=== PATIENT | male | born 1945 | race Caucasian/White ===

== ENCOUNTER 2020-07-27 09:47 | Outpatient (REF) | payer MEDICARE, SELFPAY ==
[2020-07-27 10:48] LABS: MANUAL DIFF FLAG NO
[2020-07-27 10:52] LABS: Basophils Absolute Auto 0.1 X10*3/uL (0.0-0.2); Eosinophils Absolute Auto 1.1 X10*3/uL (0.0-0.4); Eosinophils Percent Auto 14.2 % (0-4); Hematocrit 43.1 % (42-52); Hemoglobin 14.3 g/dl (14.0-18.0); Imm Gran Abs Auto 0.01 X10*3/uL (0.00-0.03); Imm Gran Pct Auto 0.1 % (0.0-0.4); Lymphocytes Percent Auto 24.4 % (20-40); Mean Corpuscular HGB Conc 33.2 g/dl (31.0-36.0); Mean Corpuscular Hemoglobin 29.2 pg (27.0-33.0); Mean Corpuscular Volume 88.1 fL (80-98); Mean Platelet Volume 9.8 fL (9.4-12.4); Monocytes Absolute Auto 0.7 X10*3/uL (0.1-1.2); Monocytes Percent Auto 8.1 % (2-11); Neutrophils Absolute Auto 4.2 X10*3/uL (2.0-8.3); Neutrophils Percent Auto 52.2 % (45-73); Platelet Count 238 X10*3/uL (160-400); Red Blood Count 4.89 X10*6/uL (4.60-5.80)
[2020-07-27 11:18] LABS: Alanine Aminotransferase 17 U/L (0-40); Albumin Level 4.1 g/dL (3.5-5.0); Alkaline Phosphatase 109 U/L (39-117); Anion Gap 14 (12-20); Aspartate Amino Transferase 15 U/L (5-37); Bilirubin Total 0.3 mg/dL (0.0-1.0); Blood Urea Nitrogen 20 mg/dL (9-16); Calcium 9.4 mg/dL (8.4-10.2); Carbon Dioxide 25 mmol/L (22-29); Chloride 108 mmol/L (96-108); Cholesterol 224 mg/dL; Estimated Glomerular Filt Rate > 60; Glucose Fasting 96 mg/dL (60-99); HDL Cholesterol 54 mg/dL; LDL Cholesterol Calculated 148 mg/dl; Sodium 143 mmol/L (135-145); Total Protein 7.9 g/dL (6.5-8.0); Triglycerides 114 mg/dL
[2020-07-27 11:42] LABS: T4 Thyroxine 5.6 ug/dL (4.5-12.0); Thyroid Stimulating Hormone 1.44 mIU/mL (0.32-4.0)
[2020-07-27 12:04] LABS: Folate 14.3 ng/mL (> or = 4.0); Vitamin B12 526 pg/mL (200-900)
[2020-07-27 13:31] LABS: Phenytoin Dilantin 6.6 ug/mL (10.0-20.0)
== END 2020-07-27 09:48 | disposition home or self-care (01) ==
LOC: HO.LAB 09:47
PROVIDERS: PCP Internal Medicine; Visit Provider Internal Medicine
DX: E66.9 Obesity, unspecified (principal); I10 Essential (primary) hypertension; G40.909 Epilepsy, unspecified, not intractable, without status epilepticus
CPT/HCPCS: 36415; 80053; 80061; 80185; 82607; 82746; 84436; 84443; 85025

== ENCOUNTER 2020-08-03 10:42 | Outpatient (REF) | payer MEDICARE, SELFPAY ==
[2020-08-03 13:29] LABS: MANUAL DIFF FLAG NO
[2020-08-03 13:39] LABS: Basophils Absolute Auto 0.1 X10*3/uL (0.0-0.2); Basophils Percent Auto 1.1 % (0-2); Eosinophils Percent Auto 11.8 % (0-4); Hemoglobin 14.3 g/dl (14.0-18.0); Imm Gran Abs Auto 0.02 X10*3/uL (0.00-0.03); Imm Gran Pct Auto 0.2 % (0.0-0.4); Lymphocytes Absolute Auto 2.2 X10*3/uL (1.2-4.9); Lymphocytes Percent Auto 26.8 % (20-40); Mean Corpuscular HGB Conc 33.3 g/dl (31.0-36.0); Mean Corpuscular Hemoglobin 29.2 pg (27.0-33.0); Mean Corpuscular Volume 87.8 fL (80-98); Mean Platelet Volume 10.7 fL (9.4-12.4); Monocytes Absolute Auto 0.7 X10*3/uL (0.1-1.2); Neutrophils Absolute Auto 4.4 X10*3/uL (2.0-8.3); Neutrophils Percent Auto 52.1 % (45-73); Platelet Count 238 X10*3/uL (160-400); Red Cell Distribution Width 14.2 % (11.0-16.0); White Blood Count 8.4 X10*3/uL (4.8-10.8)
[2020-08-03 13:51] LABS: Alanine Aminotransferase 20 U/L (0-40); Albumin Level 4.1 g/dL (3.5-5.0); Alkaline Phosphatase 109 U/L (39-117); Anion Gap 12 (12-20); Aspartate Amino Transferase 17 U/L (5-37); Bilirubin Total 0.3 mg/dL (0.0-1.0); Blood Urea Nitrogen 12 mg/dL (9-16); Calcium 9.1 mg/dL (8.4-10.2); Carbon Dioxide 27 mmol/L (22-29); Chloride 103 mmol/L (96-108); Cholesterol 218 mg/dL; Estimated Glomerular Filt Rate > 60; Glucose Random 88 mg/dL (60-115); HDL Cholesterol 53 mg/dL; LDL Cholesterol Calculated 143 mg/dl; Potassium 4.2 mmol/l (3.3-5.1); Sodium 138 mmol/L (135-145); Total Protein 7.9 g/dL (6.5-8.0); Triglycerides 111 mg/dL
[2020-08-03 14:14] LABS: T4 Thyroxine 5.9 ug/dL (4.5-12.0); Thyroid Stimulating Hormone 1.41 mIU/mL (0.32-4.0)
[2020-08-03 15:16] LABS: Phenytoin Dilantin 14.1 ug/mL (10.0-20.0)
[2020-08-04 21:00] LABS: Folate 14.8 ng/mL (> or = 4.0); Vitamin B12 581 pg/mL (200-900)
== END 2020-08-03 10:43 | disposition home or self-care (01) ==
LOC: HO.LAB 10:42
PROVIDERS: PCP Internal Medicine; Visit Provider Internal Medicine
DX: E66.9 Obesity, unspecified (principal); I10 Essential (primary) hypertension; G40.909 Epilepsy, unspecified, not intractable, without status epilepticus
CPT/HCPCS: 36415; 80053; 80061; 80185; 82607; 82746; 84436; 84443; 85025

== ENCOUNTER → 2023-05-15 13:08 | Outpatient (BNVA) | payer MEDICARE, SELFPAY | PROVIDERS: PCP Internal Medicine; Visit Provider Physician Assistant | DX: D12.6 Benign neoplasm of colon, unspecified (principal); G40.909 Epilepsy, unspecified, not intractable, without status epilepticus | CPT/HCPCS: 99202 ==

== ENCOUNTER → 2023-05-15 13:08 | Outpatient (AMB) | payer MEDICARE, SELFPAY ==
--- NOTE | 2023-05-15 13:16 | MHC.OFFVIS ---
Intake Vital Signs 05/15/23 13:18 Height 5 ft 6 in Weight 198 lb 6.656 oz BMI 32.0 BP 136/84 Blood Pressure Location Lt brachial Position Sitting Pulse 85 Intake Visit Reasons: colonoscopy screening Intake Note: Anoop presents in the office as a new patient for a colonoscopy screening. CC: No concerns today Le[employer] Senior Specialist Required: Yes [employer] Senior Specialist Name: Grandson Allergies Penicillins [PENICILLINS] Allergy (Unknown, Verified 05/15/23 13:18) RASH Medication List - Last Reconciled 05/15/23 by Pamela Henrandez PA-C aspirin 81 mg PO DAILY 90 days metoprolol succinate ER 50 mg PO DAILY 90 days pnvpodkr-qvv-DX-lycopen-lutein 0.4 mg-300 mcg- 250 mcg ([employer] Senior) 0 tabs PO phenytoin sodium extended 200 mg (2 x 100 mg) PO DAILY 90 days HPI HPI Comments History of Present Illness Details A 78 y/o male referred for colonoscopy- adult grand son present- interprets some- adds to hx- Lives alone - Reviewed record- noting 2015- TA and diverticulosis SZ disorder- now well controlled. Appetite good-- no reflux- No N/V/ D/ abdominal pain- fever or chills PFSH Medical History Alcohol abuse Bladder incontinence BPH (benign prostatic hyperplasia) Chronic cystitis Dementia GERD (gastroesophageal reflux disease) Hypercholesterolemia Hypertension Obesity (BMI 30-39.9) Renal stones Seizure disorder Subarachnoid hemorrhage following injury Surgical History History of cystoscopy History of surgery Hx of colonoscopy Family History Father Medical history unknown Mother Medical history unknown Social History Housing: Apartment Patient Tobacco Use Status: Former Tobacco user Tobacco use type: Cigarette e-Cigarette/Vaping Use: Never Used Second Hand Smoke Exposure: No Current occupational status: retired Cognitive needs: No Hearing needs: No Vision needs: Yes Review of Systems Const All systems reviewed & are unremarkable except as noted in HPI and below Card Denies chest pain and Denies dyspnea Resp Denies dyspnea GI Denies hematochezia, Denies change in bowel habits, Denies constipation, Denies heartburn, Denies nausea and Denies vomiting Physical Exam Vital Signs: Last Vital Signs Pulse 85 05/15/23 13:18 BP 136/84 05/15/23 13:18 BMI result Body Mass Index 32.0 Const General: cooperative, comfortable and no acute distress Orientation/consciousness: patient oriented x3 Limitations: language barrier Eyes Sclerae: sclerae normal Resp Effort & Inspection: normal respiratory effort and able to speak in complete sentences Auscultation: clear to auscultation bilaterally, no rhonchi and no wheezes Cardio Rate: regular rate Rhythm: regular rhythm Heart sounds: S1 normal heart sound present and S2 normal heart sound present GI Palpation (GI): Soft to palpation and nontender Auscultation: normal bowel sounds Skin General skin exam: no rashes or lesions noted Neuro General: patient oriented x3 Extrem General: Yes full ROM Psych Appearance: grossly normal and well kempt Mental Status: mental status grossly normal Speech and movement: Normal speech and movement present Affect: normal affect Attitude: cooperative Thought process: Normal thought process present Thought content: Normal thought content present Results Reviewed Results Reviewed: 2016- Colonoscopy- Dr. Tere Haley Assessment & Plan Assessment & Plan (1) Tubular adenoma of colon: Comment: 2015- TA Code(s): D12.6 - Benign neoplasm of colon, unspecified (2) Seizure disorder: Comment: controlled Code(s): G40.909 - Epilepsy, unspecified, not intractable, without status epilepticus Plan Colonoscopy-PEG= Orders: Orders Colonoscopy - GI Use Only 05/15/23 D12.6 - Benign neoplasm of colon, unspecified Medications: New peg-electrolyte soln 420 gram Start at 6:00pm the evening before procedure, drink one 8oz glass every 15 minutes until complete 240 mL PO ONCE 1 day PRN 4,000 mL 0RF laxative effect Patient Instructions: Pleasant, alert 78 y/o male SZ disorder now well controlled= adult grandson present- Polyp surveillance colonoscopy Discussed procedure- rare risks Encouraged to call any concerns Coding Level of Care Code New Pt Level 3 (85726) Diagnoses Tubular adenoma of colon D12.6 Seizure disorder G40.909 Time Spent (min) 30 Comment GSis son interprets
[2023-05-15 13:18] VITALS: BP 136/84; PULSE 85; BMI 32.0
== END ==
PROVIDERS: PCP Internal Medicine; Visit Provider Physician Assistant
DX: D12.6 Benign neoplasm of colon, unspecified (principal); G40.909 Epilepsy, unspecified, not intractable, without status epilepticus
CPT/HCPCS: 99203

== ENCOUNTER 2025-02-28 12:10 | Outpatient (AMB) | payer MEDICARE, SELFPAY ==
[2025-02-28 12:19] VITALS: BP 134/78; PULSE 109; O2SAT 98; BMI 32.3
--- NOTE | 2025-02-28 12:19 | MHC.PC.OV ---
Vital Signs 02/28/25 12:19 Height 5 ft 6 in Weight 200 lb BMI 32.3 BP 134/78 Blood Pressure Location Lt brachial Position Sitting Pulse 109 H Pulse Source Pulse Oximeter Pulse Oximetry (%) 98 Oxygen Delivery Method Room Air Intake Visit Reasons: Annual pe Allergies Penicillins [PENICILLINS] Allergy (Unknown, Verified 02/28/25 12:19) RASH Medication List - Last Reconciled 02/28/25 by Ca Nam MD metoprolol succinate ER 50 mg PO DAILY 90 days plxzjmnb-qgr-KP-lycopen-lutein 0.4 mg-300 mcg- 250 mcg (CertaVite Senior) 1 tab PO DAILY peg-electrolyte soln 420 gram 240 mL PO ONCE PRN 1 day phenytoin sodium extended Take 2 capsules by mouth twice daily take 1 capsule by mouth at bedtime orally; Tobacco use date assessed: 02/28/25 Fall risk assessment: No Falls in past year Last assessed Fall Risk: 02/28/25 Dental Screening Dental Screen Date: 02/28/25 Did you have a dental visit in the last 12 months?: Yes Did you have a dental problem in the last 6 months where you did not have access to dental care?: No Was dental information given to patient?: Patient has dentist HPI Annual pe HPI Details [id number] Jon russian interpret. R eye blurry advised to seek Dr. Abreu [facility] Medical History (Updated 02/28/25 @ 12:54 by Ca Nam MD) Renal stones Chronic cystitis Alcohol abuse BPH (benign prostatic hyperplasia) GERD (gastroesophageal reflux disease) Subarachnoid hemorrhage following injury Dementia Hypercholesterolemia Obesity (BMI 30-39.9) Bladder incontinence Hypertension Seizure disorder Surgical History Hx of colonoscopy History of surgery History of cystoscopy Family History Father Medical history unknown Mother Medical history unknown Social History (Updated 02/28/25 @ 12:42 by Ca Nam MD) Housing: Apartment Alcohol intake: former Patient Tobacco Use Status: Former Tobacco user Tobacco use type: Cigarette e-Cigarette/Vaping Use: Never Used Second Hand Smoke Exposure: No Current occupational status: retired Cognitive needs: No Hearing needs: No Vision needs: Yes Questionnaire PHQ-9 Over the last 2 weeks, how often have you been bothered by any of the following problems? 1. Little interest or pleasure in doing things: not at all 2. Feeling down, depressed, or hopeless: not at all 3. Trouble falling or staying asleep, or sleeping too much: not at all 4. Feeling tired or having little energy: not at all 5. Poor appetite or overeating: not at all 6. Feeling bad about yourself - or that you are a failure or have let yourself or your family down: not at all 7. Trouble concentrating on things, such as reading the newspaper or watching television: not at all 8. Moving or speaking so slowly that other people could have noticed. Or the opposite - being so fidgety or restless that you have been moving around a lot more than usual: not at all 9. Thoughts that you would be better off or of hurting yourself in some way: not at all Total score: 0 Depression Screening Interpretation: Negative Depression Screening Done: Yes 14867 - PHQ-9 Billing: Yes Source: Developed by Drs. John Niño, Nupur Keating, Andrea Turner and colleagues, with an educational juhi from [employer]. Thrive Questionnaire Date Thrive assessed: 02/28/25 I am a: Patient What is your living situation today?: I have a steady place to live Within the past 12 months, did the food you bought not last and you didn't have the money to get more?: Never true Within the past 12 months, did you worry whether your food would run out before you got money to buy more?: Never true Do you have trouble paying for medicines?: No Do you have trouble getting transportation to medical appointments?: No Do you have trouble paying your heating and electricity bill?: No Do you have trouble taking care of your child, family member or friend?: No Do you have trouble with day-to-day activities such as bathing, preparing meals, shopping, managing finances, etc.?: No Are you currently unemployed and looking for a job?: No Are you interested in more education?: No Please select the resources that you would like help with: None Currently or been in a relationship where the following occur: I choose not to answer THRIVE Score: 0 AUDIT C Alcohol Use Questionnaire (AUDIT-C) 1. How often do you have a drink containing alcohol?: Never Total Score: 0 BARON-7 AMB Questionnaire BARON-7 Date BARON - 7 assessed: 02/28/25 Feeling nervous, anxious, or on edge: 0 = Not at all Not being able to stop or control worryin = Not at all Worrying too much about different things: 0 = Not at all Trouble relaxin = Not at all Being so restless that it is hard to sit still: 0 = Not at all Becoming easily annoyed or irritable: 0 = Not at all Feeling afraid as if something awful might happen: 0 = Not at all Total BARON-7 score (0-4 normal; 5-9 mild; 10-14 moderate; 15-21 severe): 0 Source: Developed by Drs. John Niño, Nupur Keating, Andrea Turner and colleagues, with an educational juhi from [employer]. BARON-7 Assessment Billing BARON-7 Assessment Tool: BARON-7 Assessment 33326 Review of Systems Const Denies poor appetite and Denies weakness Eyes Denies no additional complaints ENT Reports Normal hearing present, Denies dizziness, Denies nasal congestion, Denies tinnitus and Denies sore throat Card Denies chest pain, Denies syncope, Denies rapid heart rate and Denies dyspnea Resp Denies cough and Denies dyspnea GI Denies change in stool character, Reports constipation, Denies diarrhea, Denies nausea and Denies vomiting Denies dysuria and Denies urinary frequency Neuro Reports Normal hearing present, Denies confusion, Denies dizziness, Denies syncope and Denies weakness Psych Denies confusion Physical exam (Primary Care) Vital Signs: Last Vital Signs Pulse 109 H 02/28/25 12:19 BP 134/78 02/28/25 12:19 Pulse Ox 98 02/28/25 12:19 Oxygen Delivery Method Room Air 02/28/25 12:19 BMI result Body Mass Index 32.3 Tobacco/Smoking Status: Tobacco use Status Tobacco use date assessed 02/28/25 02/28/25 12:26 Patient Tobacco Use Status Former Tobacco user 02/28/25 12:42 Tobacco use type Cigarette 02/28/25 12:42 e-Cigarette/Vaping Use Never Used 02/28/25 12:42 PHQ-9: PHQ-9 Score PHQ-9: Total score 0 02/28/25 13:00 Depression Screening Interpretation: Negative Thrive Assessment: Date of Thrive Assessment Date Thrive assessed 02/28/25 02/28/25 12:26 Currently or been in a relationship where the following occur: I choose not to answer Const General: No confusion Orientation/consciousness: No confusion HENMT Head: Yes normocephalic Ears: external ears normal and TM's normal bilaterally Face and sinus: Yes normal facial exam Mouth: moist mucous membranes Throat: Yes tonsils normal Eyes Other: corneal opacification noted Conjunctivae: conjunctivae normal Pupils: Equal, round and reactive pupils present and Pupil accommodation reflex normal Direct Ophthalmoscopy: normal light reflex Neck Neck: No lymphadenopathy Thyroid: Thyroid normal Chest Chest palpation & inspection: normal inspection of the chest Resp Effort & Inspection: normal respiratory effort and no audible wheezes Auscultation: clear to auscultation bilaterally, no crackles, no wheezes and lung sounds not diminished Cardio Rate: regular rate Rhythm: regular rhythm Peripheral pulses: radial pulses present and dorsalis pedis present GI Other: colon test to schedule Palpation (GI): no masses Auscultation: normal bowel sounds and normoactive bowel sounds Rectal Exam - Male: Yes deferred Male General Exam: Yes normal external exam Skin General skin exam: no rashes or lesions noted Rashes: no rashes Neuro General: No confusion Cranial nerves: Yes Equal, round and reactive pupils present and Yes Normal hearing present Cognition (Neuro): normal cognition Gait exam (Neuro): Normal gait present Motor exam (neuro): 5/5 motor strength present throughout Deep tendon reflexes (DTR's): Right brachioradialis reflex intensity grade: 2+, Left brachioradialis reflex intensity grade: 2+, Right patellar reflex intensity grade: 2+ and Left patellar reflex intensity grade: 2+ Extrem General: No edema Immunizations Tenivac (PF) 5 Lf unit-2 Lf unit/0.5 mL intramuscular suspension Performing Provider: Ca Nam MD [facility] Administered by: Diane Howard CMA on 02/28/25 13:00 Dose Route Admin Location Dispensed Lot Number Expiration Date [facility] Repair Armature Winder 0.5 mL IM Left Deltoid 0.5 mL [id number] 12/25/26 47932-532-50 [employer] VIS Given Date VIS Provided VIS Publication Date 02/28/25 Single Vaccine 21 Eligibility Eligibility Date Funding Source Not [facility] Eligible 02/28/25 Private Coding Level of Care Code Est Pt Prev Care >65y(06461) Diagnoses Annual physical exam Z00.00 Seizure disorder G40.909 Hypertension I10 Obesity (BMI 30-39.9) E66.9 Hypercholesterolemia E78.00 Dementia F03.90 GERD (gastroesophageal reflux disease) K21.9 BPH (benign prostatic hyperplasia) N40.0 Tubular adenoma of colon D12.6 Impacted cerumen of left ear H61.22 Additional Codes BARON-7 Assessment Billing - BRAON-7 Assessment Tool: BARON-7 Assessment 15577 ([id number]) PHQ-9 - 41766 - PHQ-9 Billing: Yes ([id number]) Assessment & Plan Assessment & Plan (1) Annual physical exam: Code(s): Z00.00 - Encounter for general adult medical examination without abnormal findings Category: Medical Plan: Patient is advised to eat healthy, keep well hydrated, keep active and have adequate sleep. (2) Seizure disorder: Comment: controlled 2016 Code(s): G40.909 - Epilepsy, unspecified, not intractable, without status epilepticus Category: Medical Plan: Continue with the seizure medication on Dilantin (3) Hypertension: Comment: Echo October 2019 EF 60-65%, nuclear stress test December 16 negative Code(s): I10 - Essential (primary) hypertension Category: Medical Plan: Continue with blood pressure medication. Decrease salt intake and exercise continue with metoprolol 50 mg once a day (4) Obesity (BMI 30-39.9): Code(s): E66.9 - Obesity, unspecified Category: Medical Plan: Diet and exercise (5) Hypercholesterolemia: Code(s): E78.00 - Pure hypercholesterolemia, unspecified Category: Medical Plan: Avoid fried foods, chicken skin, eggs, butter margarine, pastries and meat. Be it pork or beef they have a lot of cholesterol LDL goal of less than 130 and triglyceride of less than 150. Patient is advised to get blood work done (6) Dementia: Code(s): F03.90 - Unspecified dementia, unspecified severity, without behavioral disturbance, psychotic disturbance, mood disturbance, and anxiety Category: Medical Plan: Supportive treatment (7) GERD (gastroesophageal reflux disease): Code(s): K21.9 - Gastro-esophageal reflux disease without esophagitis Category: Medical Plan: Avoid the foods that causes that usually spicy foods, tomato products, juices, coffee, soda and foods that your sensitive to. After eating do not lie down, allow 3-4 hours before in lie down. And keep the head of bed above 30 degrees to avoid the acid from going up. (8) BPH (benign prostatic hyperplasia): Code(s): N40.0 - Benign prostatic hyperplasia without lower urinary tract symptoms Category: Medical Plan: Stable (9) Tubular adenoma of colon: Comment: 2015- Code(s): D12.6 - Benign neoplasm of colon, unspecified Category: Medical Plan: Patient is reminded about colonoscopy (10) Impacted cerumen of left ear: Code(s): H61.22 - Impacted cerumen, left ear Category: Medical Plan History of Present Illness The patient is a 79-year-old male presenting with a routine follow-up for chronic conditions management and overdue screenings. He has a known history of hypertension, managed with metoprolol 50 mg daily, and seizure disorder on Dilantin therapy, with the last seizure episode occurring in 2017. 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 There is a noted allergy to penicillin. His last blood panel was over four years ago, in 2019, and there's a significant lapse in recommended screening procedures, including a colonoscopy which was last performed in 2016. Despite a plan for a repeat colonoscopy, it was postponed due to scheduling issues. Medication adherence remains a concern, with reports of missed doses despite family support in sorting medications. The patient participates in daily walks for exercise, covering approximately two blocks, and denies any recent nausea, chest pain, fever, difficulty swallowing, or hearing issues. He previously smoked but quit in later years and does not consume alcohol. Post-BPH surgery, he reports no current urinary complaints. Although he experiences balance issues and declines using a cane, his dietary preferences are shifting towards healthier choices. Health Maintenance - Recommendation for fasting blood work - Referral for gastroenterology consultation for colonoscopy - Cholesterol management with a goal LDL <130 and triglycerides <150 - Lifestyle advice on diet focusing on plant-based proteins - Encouragement of regular exercise - Tetatus booster recommended - Shingles vaccination status discussed; advised completion of series Social History - Daily walking as exercise, approximately two blocks - Non-smoker, former smoker in younger years - No alcohol consumption reported - Lives with family; son aids with medication management Review of Systems - Eyes: Reports vision loss in right eye - Cardiovascular: Denies chest pain - Respiratory: Denies shortness of breath - Gastrointestinal: Denies heartburn, swallowing difficulties, nausea, vomiting - Genitourinary: Denies nocturia or urinary issues; prior BPH surgery - Neurological: Denies recent seizures; reports balance issues - Musculoskeletal: Denies pain - Dermatology: Dry skin noted - Allergy: Reports penicillin allergy Physical Exam General: Cooperative, healthy appearing, comfortable, no acute distress and well developed Orientation: Patient oriented x3 Limitations: No limitations Head: Normal to inspection Ears: Left ear is blocked with earwax Nose: Normal external nose present Face and sinus: Normal facial exam Eyes: Cannot see from the right eye Neck: Normal visual inspection and Yes full ROM Respiratory: Normal respiratory effort and able to speak in complete sentences. Clear to auscultation bilaterally Cardiovascular: Heart's a little bit fast. Regular rate and rhythm. Normal S1 and S2 GI: Normal to inspection. Soft to palpation and nontender Skin: Dry skin noted Neuro: Patient oriented x3 Extremities: Normal to inspection. Some balancing issues noted, refuses to use cane. Results - Labs: Blood work from 2020 available, none recent - Tests: No recent colonoscopy since 2016 Plan Hypertension management continues with metoprolol 50 mg once daily. Dilantin remains for seizure control, considering the lack of recent episodes. For hypercholesterolemia, dietary modifications and routine physical activity are encouraged with specific lipid goals established. A referral is made for gastroenterology to undertake the overdue colonoscopy. The patient is counseled on vaccination importance, with attention to the shingles and tetanus vaccines. Regular follow-up is emphasized for ongoing management of chronic conditions and preventive care. Patient was informed and verbally consented to the use of an ambient scribe for clinic note documentation during this visit. Discussion Notes I discussed the need for ongoing management of the patient?s hypertension, seizure disorder, and hypercholesterolemia, reaffirming the importance of dietary and exercise changes. The rationale for a gastroenterology referral for a colonoscopy was provided, emphasizing the importance of screening in preventing colorectal cancer. Fasting blood work is planned to assess current lipid levels and other routine parameters. The patient was made aware of the need for tetanus and shingles vaccinations. Discussions included scheduling misunderstandings in addressing medication adherence, ensuring family support and understanding. Regular follow-up was advised to monitor his conditions and preventative health adherence was encouraged. Patient Instructions - Continue taking metoprolol 50 mg once daily. - Keep on Dilantin for seizures as previously prescribed. - Follow a healthy diet, aiming for cholesterol management goals. - Walk daily for exercise. - Schedule a fasting blood test. - Set a gastroenterology appointment for colonoscopy. - Continue with regular tetanus and shingles vaccinations. - Inform family members for assistance with medication adherence. - Seek immediate medical attention if experiencing chest pains, seizures, or unusual symptoms. Orders: Orders Complete Blood Count Auto Diff Today E78.00 - Pure hypercholesterolemia, unspecified Comprehensive Met. Panel Today E78.00 - Pure hypercholesterolemia, unspecified Lipid Panel Today E78.00 - Pure hypercholesterolemia, unspecified Thyroid Stimulating Hormone Today E78.00 - Pure hypercholesterolemia, unspecified Vitamin B12 and Folate Today E78.00 - Pure hypercholesterolemia, unspecified Free T4 (Free Thyroxine) Today E78.00 - Pure hypercholesterolemia, unspecified Phenytoin Dilantin Today E78.00 - Pure hypercholesterolemia, unspecified Magnesium Today E78.00 - Pure hypercholesterolemia, unspecified Td Immunization Today Z23 - Encounter for immunization Referrals Gastroenterology Referral D12.6 - Benign neoplasm of colon, unspecified
--- OUTSIDE RECORDS SUMMARY | 2025-02-28 13:43 | XMS_ITS | Continuity of Care Document ---
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
== END 2025-02-28 13:17 | disposition home or self-care (01) ==
PROVIDERS: PCP Internal Medicine; Visit Provider Internal Medicine
DX: Z00.00 Encounter for general adult medical examination without abnormal findings (principal); G40.909 Epilepsy, unspecified, not intractable, without status epilepticus; F03.90 Unspecified dementia, unspecified severity, without behavioral disturbance, psychotic disturbance, mood disturbance, and anxiety; E66.9 Obesity, unspecified; Z68.32 Body mass index [BMI] 32.0-32.9, adult; I10 Essential (primary) hypertension; E78.00 Pure hypercholesterolemia, unspecified; K21.9 Gastro-esophageal reflux disease without esophagitis; N40.0 Benign prostatic hyperplasia without lower urinary tract symptoms; D12.6 Benign neoplasm of colon, unspecified; H61.22 Impacted cerumen, left ear; Z23 Encounter for immunization

== ENCOUNTER → 2025-02-28 12:10 | Outpatient (BNVA) | payer MEDICARE, SELFPAY | PROVIDERS: PCP Internal Medicine; Visit Provider Internal Medicine | DX: Z00.00 Encounter for general adult medical examination without abnormal findings (principal); Z23 Encounter for immunization; G40.909 Epilepsy, unspecified, not intractable, without status epilepticus; I10 Essential (primary) hypertension; E66.9 Obesity, unspecified; Z68.32 Body mass index [BMI] 32.0-32.9, adult; E78.00 Pure hypercholesterolemia, unspecified; F03.90 Unspecified dementia, unspecified severity, without behavioral disturbance, psychotic disturbance, mood disturbance, and anxiety; K21.9 Gastro-esophageal reflux disease without esophagitis; N40.0 Benign prostatic hyperplasia without lower urinary tract symptoms; H61.22 Impacted cerumen, left ear; Z79.899 Other long term (current) drug therapy; Z86.0101 Personal history of adenomatous and serrated colon polyps | CPT/HCPCS: 90471; 90714; 96127; 99397 ==

== ENCOUNTER 2025-06-06 12:21 | Emergency (ER) | payer OTHER, SELFPAY ==
--- OUTSIDE RECORDS SUMMARY | 2018-12-03 05:39 | XMS_ITS | Continuity of Care Document ---
Author Organization [facility] Address [address] [address] Phone Care Team Providers Care Panman Name Role Phone Rashel Steward DO Unavailable Unavailable Advance Directives Directive Yes / No Effective Date File Name No Information Encounters Encounter Description Practice Location Reason(s) For Visit Diagnoses Date Provider [facility], [address], [id number], [place] tel:[phone] [address] [place] [address] No Information 2018 Bin iKser. [address] [place] [address], [id number], [place]. tel:[phone] Family History Family Member Type Diagnosis Age At Onset No Information Payers Payer name Insurance type Covered alliance party ID Authoriza tion(s) No Information Social History Type Description Quantity Date Captured Comments Sex Male Smoking Status No Information Chief Complaint And Reason For Visit No Information History Of Present Illness Encounter Date Complaint History Of Prese nt Illness No Information Instructions Date Instruction Additional Infor mation No Information Assessments Type Assessment Date No Information
--- NOTE | 2025-06-06 13:18 | ED.GENADULT ---
HPI - General Adult General Chief complaint: General Medical Stated complaint: R foot toe nail falling off Related Data Previous Rx's ?Medication ?Instructions ?Recorded peg-electrolyte solution 420 gram 240 ml PO ONCE PRN laxative effect 05/15/23 oral solution 1 day #4,000 mL jtsmuozn-gln-dfrya acid 0.4 1 tab PO DAILY #90 tabs 02/11/25 mg-lycopene 300 mcg-lutein 250 mcg tablet (CertaVite Senior) metoprolol succinate 50 mg 50 mg PO DAILY 90 days #90 tabs 04/07/25 tablet,extended release 24 hr phenytoin sodium extended 100 mg See Rx Instructions PO .COMPLEX 06/02/25 capsule #140 caps Allergies Allergy/AdvReac Type Severity Reaction Status Date / Time Penicillins (PENICILLINS) Allergy Unknown RASH Verified 06/06/25 13:20 [facility] Past Medical History Medical History (Updated 06/08/25 @ 15:45 by Vicenta Simpson NP) Renal stones Chronic cystitis Alcohol abuse BPH (benign prostatic hyperplasia) GERD (gastroesophageal reflux disease) Subarachnoid hemorrhage following injury Dementia Hypercholesterolemia Obesity (BMI 30-39.9) Bladder incontinence Hypertension Seizure disorder Surgical History Hx of colonoscopy History of surgery History of cystoscopy Family History Family History Father Medical history unknown Mother Medical history unknown Social History Social History (Updated 02/28/25 @ 12:42 by Ca Nam MD) Housing: Apartment Alcohol intake: former Patient Tobacco Use Status: Former Tobacco user Tobacco use type: Cigarette e-Cigarette/Vaping Use: Never Used Second Hand Smoke Exposure: No Advance Directives: No Advance Directives Information Provided: No Current occupational status: retired Cognitive needs: No Hearing needs: No Vision needs: Yes Physical Exam ED Vital Signs: BMI result Body Mass Index 30.9 Course Course Course Narrative: This is a rapid medical exam performed by Ivone Simpson NP: Additional HPI, ROS, PE not included below will be deferred to primary provider. Patient is a 80-year-old male with history of dementia, GERD, BPH, HTN, seizure disorder presenting to the ED stating that toenail is falling off great toe of right foot. Nail mostly off, appears fungal. States he tried to rip it off himself last night but it wouldn't come off all the way. Patient left the emergency department before myself or any of the other clinicians could review or explain physical exam findings, test results, need or lack there of for additional testing, treatment options, or a treatment plan. Discharge Plan Discharge Clinical Impression: Avulsed toenail Patient Disposition: Left W/O Completing Treatment Prescriptions: No Action CertaVite Senior 0.4 mg-300 mcg- 250 mcg tablet 1 tab PO DAILY Qty: 90 0RF metoprolol succinate 50 mg tablet extended release 24 hr 50 mg PO DAILY 90 Days Qty: 90 0RF phenytoin sodium extended 100 mg capsule See Rx Instructions PO .COMPLEX Qty: 140 0RF Rx Instructions: Take 2 capsules by mouth twice daily take 1 capsule by mouth at bedtime orally; peg-electrolyte soln 420 gram recon soln 240 ml PO ONCE PRN (Reason: laxative effect) 1 Days Qty: 4000 0RF Rx Instructions: Start at 6:00pm the evening before procedure, drink one 8oz glass every 15 minutes until complete Discharge Date/Time: 06/06/25 20:32
[2025-06-06 13:19] VITALS: BP 178/84; PULSE 95; RESP 16; TEMP 36.9; O2SAT 97; BMI 30.9
--- NOTE | 2025-06-06 20:37 | PC.NURSE ---
No answer in the WR at 1925.
== END 2025-06-06 20:32 | disposition left against medical advice (07) ==
LOC: HO.ED 20:33
PROVIDERS: Emergency Provider Emergency Medicine
DX: S91.201A Unspecified open wound of right great toe with damage to nail, initial encounter (principal); I10 Essential (primary) hypertension; F03.90 Unspecified dementia, unspecified severity, without behavioral disturbance, psychotic disturbance, mood disturbance, and anxiety; X58.XXXA Exposure to other specified factors, initial encounter; Y93.89 Activity, other specified; Y92.89 Other specified places as the place of occurrence of the external cause; Y99.8 Other external cause status; Z79.899 Other long term (current) drug therapy
CPT/HCPCS: 99281

== ENCOUNTER 2025-06-23 14:01 | Outpatient (AMB) | payer MEDICARE, SELFPAY ==
--- OUTSIDE RECORDS SUMMARY | 2018-12-03 05:39 | XMS_ITS | Continuity of Care Document ---
Author Organization [facility] Address [address] [address] Phone Care Team Providers Care Creative Services Designer Name Role Phone Rashel Steward DO Unavailable Unavailable Advance Directives Directive Yes / No Effective Date File Name No Information Encounters Encounter Description Practice Location Reason(s) For Visit Diagnoses Date Provider [facility], [address], [id number], [place] tel:[phone] [address] [place] [address] No Information 2018 Bin Kiser. [address] [place] [address], [id number], [place]. tel:[phone] Family History Family Member Type Diagnosis Age At Onset No Information Payers Payer name Insurance type Covered republican ID Authoriza tion(s) No Information Social History Type Description Quantity Date Captured Comments Sex Male Smoking Status No Information Chief Complaint And Reason For Visit No Information History Of Present Illness Encounter Date Complaint History Of Prese nt Illness No Information Instructions Date Instruction Additional Infor mation No Information Assessments Type Assessment Date No Information
--- NOTE | 2025-06-23 14:04 | A.OFFVIS_ITS ---
Vital Signs 3 06/23/25 14:06 Height 5 ft 7 in Weight 196 lb BMI 30.7 BP 140/80 H Blood Pressure Location Rt brachial Position Sitting Pulse 120 H Pulse Source Pulse Oximeter Pulse Oximetry (%) 98 Oxygen Delivery Method Room Air Intake Visit Reasons: Colonoscopy Screening was Pamela pt Intake Note: Est pt for recall colo screening. GOVIND 2022 w/ JOB. CC: Pt denies any GI sx or concerns at this time. Portal Developer Required: No Portal Developer Services: Portal Developer Offered & Declined Accompanied by: Daughter Allergies Penicillins (PENICILLINS) Allergy (Unknown, Verified 06/23/25 14:05) RASH HPI HPI Colonoscopy Screening was Pamela pt: Details: 80-year-old male here for preprocedural meeting to discuss a screening colonoscopy. He is referred by Ca [facility]. PMX Dementia Hypertension Seizure disorder High cholesterol BPH GERD History of tubular adenoma History of alcohol abuse Chronic cystitis History of subarachnoid hemorrhage * SURGICAL HISTORY Intracranial surgery Cystoscopy Colonoscopy 2005, 2008 TA IS * ALLERGIES Penicillin * [facility] LABS: None since 2019 TODAY'S VISIT [place] # relative translates per patient request He had prior colonoscopies in 2008 and 2015 with tubular adenomas. He has GERD that is well controlled and denies any bowel problems. He denies any cardiac or respiratory problems. He has a seizure disorder this well controlled. There are no prior problems with anesthesia or sedation. There are no infectious disease problems. [facility] Medical History (Updated 06/23/25 @ 14:27 by CLEMENT Grace) Annual physical exam Renal stones Chronic cystitis Alcohol abuse BPH (benign prostatic hyperplasia) GERD (gastroesophageal reflux disease) Subarachnoid hemorrhage following injury Dementia Hypercholesterolemia Obesity (BMI 30-39.9) Bladder incontinence Hypertension Seizure disorder Surgical History (Updated 06/23/25 @ 14:48 by CLEMENT Grace) Hx of colonoscopy History of surgery History of cystoscopy Family History Father Medical history unknown Mother Medical history unknown Social History Housing: Apartment Alcohol intake: former Patient Tobacco Use Status: Former Tobacco user Tobacco use type: Cigarette e-Cigarette/Vaping Use: Never Used Second Hand Smoke Exposure: No Current occupational status: retired Cognitive needs: No Hearing needs: No Vision needs: Yes Review of Systems Const Denies fatigue, Denies fever(s), Denies night sweats, Denies poor appetite and Denies weight loss ENT Reports Normal hearing present, Denies dental pain, Denies dysphagia, Denies hearing loss, Denies mouth pain, Denies odynophagia, Denies throat swelling, Denies tongue swelling and Reports other (Dentition adequate) Card Reports no additional complaints Resp Reports no additional complaints GI Details: Denies abdominal pain, Denies melena, Denies bloating, Denies hematochezia, Denies constipation, Denies GI cramping, Denies dysphagia, Denies excessive flatus, Denies early satiety, Reports heartburn, Denies diarrhea, Denies nausea, Denies odynophagia, Denies vomiting and Denies hematemesis Musc Reports myalgias Skin/Breast Denies pruritus, Denies lesions, Denies rash and Denies jaundice Neuro Reports Normal hearing present, Denies Abnormal speech present and Reports memory loss Psych Reports memory loss Endo Denies fatigue Aller/Immun Denies throat swelling and Denies tongue swelling Physical Exam Vital Signs: Last Vital Signs Pulse 120 H 06/23/25 14:06 BP 140/80 H 06/23/25 14:06 Pulse Ox 98 06/23/25 14:06 Oxygen Delivery Method Room Air 06/23/25 14:06 BMI result Body Mass Index 30.7 Const General: cooperative, no acute distress, well developed and well groomed Nutritional Appearance: well nourished, obese and overweight Orientation/consciousness: oriented to person, oriented to place and oriented to time Limitations: No language barrier, ambulation with cane, ambulation with walker and wheelchair HEENT Head: Yes normocephalic and Yes atraumatic Head images: 2 1. surgical scar Eyes General: appearance normal, both eyes and all related structures Pupils: Equal, round and reactive pupils present Neck Neck: Yes normal visual inspection and Yes no lymphadenopathy Thyroid: Thyroid normal Resp Effort & Inspection: normal respiratory effort and able to speak in complete sentences Auscultation: clear to auscultation bilaterally Cardio Rate: regular rate Rhythm: regular rhythm Heart sounds: Normal, physiologic split S2 sound present Peripheral pulses: radial pulses present and posterior tibial pulses present GI Inspection: No distended, Yes Abdominal panniculus present, Yes obesity and Yes scar Palpation (GI): Soft to palpation, nontender, no guarding, not rigid and No hepatosplenomegaly present Percussion: Yes normal to percussion Auscultation: normal bowel sounds Rectal Exam - Male: Yes deferred Abdomen image: 2 1. G tube scars 2. Skin General skin exam: no rashes or lesions noted, turgor normal, skin not dry, no jaundice, No spider nevi and no striae Rashes: no rashes Nails: normal Neuro General: oriented to person, oriented to place and oriented to time Cranial nerves: Yes Equal, round and reactive pupils present and Yes Normal hearing present Speech: No Abnormal speech present Gait exam (Neuro): Antalgic gait present (r/t pain left heel) Extrem General: Yes normal to inspection, No clubbing, No cyanosis and Yes edema (L>R mild pitting) Right lower extremity: foot (Foreshortened toenail? Fungal) Psych Appearance: grossly normal and well kempt Mental Status: mental status grossly normal Speech and movement: Normal speech and movement present Affect: normal affect Attitude: cooperative Thought process: Circumstantial thought process present and not confabulating Thought content: Normal thought content present Insight: Limited insight present (Psych) Judgement: Limited judgement present (Psych) Assessment & Plan Assessment & Plan (1) Seizure disorder: Comment: controlled 2017 Code(s): G40.909 - Epilepsy, unspecified, not intractable, without status epilepticus Category: Medical (2) Obesity (BMI 30-39.9): Code(s): E66.9 - Obesity, unspecified Category: Medical (3) Dementia: Code(s): F03.90 - Unspecified dementia, unspecified severity, without behavioral disturbance, psychotic disturbance, mood disturbance, and anxiety Category: Medical (4) Tubular adenoma of colon: Comment: 2016- 1 TA, 2009= 3 TA is Code(s): D12.6 - Benign neoplasm of colon, unspecified Category: Medical (5) Pre-op examination: Code(s): Z01.818 - Encounter for other preprocedural examination Category: Medical Plan [place] # relative translates per patient request He had prior colonoscopies in 2008 and 2016 with tubular adenomas. He has GERD that is well controlled and denies any bowel problems. He denies any cardiac or respiratory problems. He has a seizure disorder this well controlled. There are no prior problems with anesthesia or sedation. There are no infectious disease problems. Orders: Orders 2 Colonoscopy - GI Use Only Today D12.6 - Benign neoplasm of colon, unspecified, Z01.818 - Encounter for other preprocedural examination Complete Blood Count Auto Diff Today D12.6 - Benign neoplasm of colon, unspecified, Z01.818 - Encounter for other preprocedural examination Comprehensive Met. Panel Today D12.6 - Benign neoplasm of colon, unspecified, Z01.818 - Encounter for other preprocedural examination Medications: New 2 peg 3350-electrolytes 236-22.74-6.74 -5.86 gram (Golytely) until fecal effluent is clear; do not exceed a total volume of 2,000 mL 240 mL PO Q10M 4,000 mL 0RF 1 day Z12.11 - Encounter for screening for malignant neoplasm of colon bisacodyl (Dulcolax (bisacodyl)) 10 mg (2 x 5 mg) PO BEDTIME 4 tabs 0RF 2 days Coding Level of Care Code Est Pt Level 4 (10323) Diagnoses Seizure disorder G40.909 Obesity (BMI 30-39.9) E66.9 Dementia F03.90 Tubular adenoma of colon D12.6 Pre-op examination Z01.818 Time Spent (min) 36
[2025-06-23 14:06] VITALS: BP 140/80; PULSE 120; O2SAT 98; BMI 30.7
== END 2025-06-23 14:54 | disposition home or self-care (01) ==
LOC: HO.HGI 14:02
PROVIDERS: PCP Internal Medicine; Visit Provider Nurse Practitioner
DX: Z01.818 Encounter for other preprocedural examination (principal); Z12.11 Encounter for screening for malignant neoplasm of colon; Z86.0101 Personal history of adenomatous and serrated colon polyps; G40.909 Epilepsy, unspecified, not intractable, without status epilepticus; F03.90 Unspecified dementia, unspecified severity, without behavioral disturbance, psychotic disturbance, mood disturbance, and anxiety; E66.9 Obesity, unspecified
CPT/HCPCS: 99214

== ENCOUNTER → 2025-06-23 14:01 | Outpatient (BNVA) | payer OTHER, SELFPAY | PROVIDERS: PCP Internal Medicine; Visit Provider Nurse Practitioner | DX: Z01.818 Encounter for other preprocedural examination (principal); G40.909 Epilepsy, unspecified, not intractable, without status epilepticus; E66.9 Obesity, unspecified; F03.90 Unspecified dementia, unspecified severity, without behavioral disturbance, psychotic disturbance, mood disturbance, and anxiety; D12.6 Benign neoplasm of colon, unspecified | CPT/HCPCS: 99212 ==